=== PATIENT | female | born 1950 | race Two or more races ===

== ENCOUNTER 2021-01-31 07:03 | Outpatient (CLI) | payer OTHER | END 2021-01-31 07:12 | disposition home or self-care (01) | LOC: TOM 07:03 | PROVIDERS: ATTEND Internal Medicine Gastroenterology | DX: Q44.6 Cystic disease of liver (principal); R10.31 Right lower quadrant pain; Z12.11 Encounter for screening for malignant neoplasm of colon | CPT/HCPCS: 74177; Q9965 ==

== ENCOUNTER 2021-04-12 09:00 | Outpatient (CLI) | payer OTHER | END 2021-04-12 09:15 | disposition home or self-care (01) | LOC: PPH VACUNA 09:00 | PROVIDERS: ATTEND Emergency Medicine Pediatric Emergency Medicine | DX: Z23 Encounter for immunization (principal) ==

== ENCOUNTER 2021-05-20 07:44 | Outpatient (CLI) | payer OTHER | END 2021-05-21 07:29 | disposition home or self-care (01) | LOC: TOM 07:44 | PROVIDERS: ATTEND Internal Medicine Gastroenterology | DX: Q44.6 Cystic disease of liver (principal); K56.600 Partial intestinal obstruction, unspecified as to cause; Z12.11 Encounter for screening for malignant neoplasm of colon ==

== ENCOUNTER 2025-02-04 09:04 | Outpatient (CLI) | payer OTHER ==
[~2025-02-04 09:04] MED LIST: AMLODIPINE-OLM1 EAC2; HYDROCHLOROTHIA25 MG PO; ZESTRIL30 MG
[2025-02-04 11:44] LABS: COL EPI 111 SECONDS (82-175)
== END 2025-02-04 09:05 | disposition home or self-care (01) ==
LOC: LAB 09:04
PROVIDERS: ATTEND Specialist
DX: D68.8 Other specified coagulation defects (principal)